=== PATIENT | female | born 1950 | race Two or more races ===

== ENCOUNTER 2018-09-26 09:39 | Day surgery (SDC) | payer BC, OTHER ==
[2018-09-25 08:29] VITALS: BMI 43.9
[2018-09-26] MEDS ORDERED: ONABOTULINUMTOXINA 200 UNIT/VIAL VIAL NR ONE (14:00)
[2018-09-26] MEDS ORDERED: ONDANSETRON 4 MG/2 ML VIAL IVPUSH PRN (14:44)
[2018-09-26] MEDS ORDERED: LACTATED RINGERS SOLUTION 1,000 ML IV SCH (14:45)
--- NOTE | 2018-09-26 15:24 | OP ---
Operative Note - Note: Operative Date: 09/26/18 Pre-Operative Diagnosis: oab, urgency, and cleo Operation: cysto, botex injection Post-Operative Diagnosis: Same as Pre-op Surgeon: Lars Ferrari Anesthesia: General Specimens Removed: urine for c&s Estimated Blood Loss (mls): 0 Drains & Tubes with Location: 0 Drains, Volume Out (mls): 0 Blood Volume Replaced (mls): 0 Fluid Volume Replaced (mls): 0 Operative Report Dictated: Yes
[2018-09-26] MEDS ORDERED: MIDAZOLAM HCL 2 MG/2 ML SINGLE DOSE VIAL ONE (15:29)
[2018-09-26] MEDS ORDERED: PROPOFOL 20 ML ONE (15:29)
[2018-09-26] MEDS ORDERED: ceFAZolin SODIUM 1 GM VIAL IVPB ONE (15:30)
[2018-09-26] MEDS ORDERED: ONABOTULINUMTOXINA 200 UNIT/VIAL VIAL IM ONE ×2 (15:50→15:54)
[2018-09-26 18:38] VITALS: BP 109/76; PULSE 103; TEMP 97.2
--- NOTE | 2018-09-27 09:56 | OP ---
DATE OF OPERATION: 09/26/2018 PREOPERATIVE DIAGNOSIS: Overactive bladder, urgency incontinence. POSTOPERATIVE DIAGNOSIS: Overactive bladder, urgency incontinence. PROCEDURES PERFORMED: Cystourethroscopy. Injection of Botox in bladder. ANESTHESIA: Neuroleptic. DESCRIPTION OF PROCEDURE: Under above-stated anesthesia, patient is prepped and draped in the usual sterile manner. She was placed in the dorsal lithotomy position. Cystoscopy revealed a grade 2 trabeculation of the bladder. Urine was collected for culture and sensitivity. The bladder revealed squamous metaplasia of the floor. Ureteral orifices were within normal limits with efflux of clear urine. Dome and lateral rivas were clear. Therefore, 200 units of Botox was mixed with mL of normal saline. Next, 20 mL was placed in 4-mL syringes. Four rows above the interureteric ridge were performed for injections, commencing from the right lateral wall and going across to the left lateral wall 5 injections. A second, third, and fourth row was performed. No active bleeding was noted. The bladder was emptied. The scope was removed. The patient tolerated the procedure well. She returned to the recovery room in good condition. Maxim [id number]
--- NOTE | 2018-09-29 09:19 | HP ---
DATE OF ADMISSION: DATE OF DICTATION: 09/26/2018 HISTORY OF PRESENT ILLNESS: The patient is a 68-year-old female with history of overactive bladder including frequency, urgency, nocturia, and incontinence. She also has history of anemia, chronic renal disease, gastroesophageal reflux disease, congestive heart failure, diabetes, dilated cardiomyopathy with an ejection fraction of 30. She failed all anticholinergic drug therapy including Kegel exercises. Urodynamic evaluation revealed an overactive bladder. Therefore patient is admitted for cystoscopy and Botox injection. PHYSICAL EXAMINATION: Presently chest is clear. Heart is regular. CT scan was within normal limits except for a simple left renal cyst. The patient is a G1, P1. Lungs are clear. Her heart is regular. Pelvic exam revealed a grade 2 cystocele, grade 1 rectocele, positive Rai test. Extremities show full range of motion with no cyanosis, clubbing, or edema. PLAN: The patient will undergo a cystoscopy with Botox injection. Maxim [id number]
== END 2018-09-26 18:25 | disposition home or self-care (01) ==
LOC: JASU-SURG 09:39
PROVIDERS: ATTEND Urology
PROC: 3E0K8GC Introduction of Other Therapeutic Substance into Genitourinary Tract, Via Natural or Artificial Opening Endoscopic (ICD-10-PCS; principal; 2018-09-26 13:00)
DX: N32.81 Overactive bladder (principal); N39.41 Urge incontinence; I10 Essential (primary) hypertension; E11.9 Type 2 diabetes mellitus without complications; E66.01 Morbid (severe) obesity due to excess calories
CPT/HCPCS: 82962; 87086; 94760; J0585

== ENCOUNTER 2020-06-30 04:29 | Day surgery (SDC) | payer BC, OTHER ==
[2020-06-29 11:46] VITALS: BMI 41.4
[2020-06-30 08:26] LABS: HEMATOCRIT 34.3 % (32.4-45.2); HEMOGLOBIN 11.1 GM/dL (10.7-15.3); MCH 33.8 pg (25.7-33.7); MCHC 32.3 g/dl (32.0-36.0); MEAN CELL VOLUME 104.5 fl (80-96); MEAN PLT VOLUME 10.1 fl (7.5-11.1); PLATELET COUNT 132 K/MM3 (134-434); RBC 3.29 M/mm3 (3.60-5.2); RDW 15.1 % (11.6-15.6); WHITE BLOOD COUNT 11.5 K/mm3 (4.0-10.0)
--- NOTE | 2020-06-30 08:45 | HP ---
Admitting History and Physical - Admission Chief Complaint: Pt here for creation of left avf for HD History Source: Patient Limitations to Obtaining History: No Limitations - Smoking History Smoking history: Never smoked - Alcohol/Substance Use Hx Alcohol Use: No Home Medications - Allergies Allergies/Adverse Reactions: Allergies Allergy/AdvReac Type Severity Reaction Status Date / Time aspirin AdvReac Severe STOMACH Verified 06/30/20 07:53 DISCOMFORT - Home Medications Home Medications: Ambulatory Orders Albuterol 2.5/Ipratropium 0.5 [Duoneb -] 1 neb NEB Q4H PRN 09/25/18 Albuterol Sulfate Inhaler - [Ventolin Hfa Inhaler -] 1 - 2 inh PO QID PRN 09/25/18 Atorvastatin Ca [Lipitor] 40 mg PO HS 09/25/18 Calcium Carbonate [Calcium] 200 mg PO DAILY 09/25/18 Enalapril Maleate 2.5 mg PO DAILY 09/25/18 Isosorbide Mononitrate [Isosorbide Mononitrate ER] 30 mg PO DAILY 09/25/18 Levothyroxine [Synthroid -] 50 mcg PO DAILY 09/25/18 Metoprolol Succinate 37.5 mg PO DAILY 09/25/18 Pantoprazole Sodium [Protonix -] 40 mg PO DAILY 09/25/18 Prednisone 10 mg PO DAILY 09/25/18 Tiotropium [place] [Spiriva] 1 inh PO DAILY 09/25/18 Torsemide 40 mg PO DAILY 09/25/18 Allopurinol [Zyloprim -] 200 mg PO DAILY 06/29/20 Budesonide/Formeterol Fumarate [SYMBICORT 160/4.5mcg -] 2 inh PO BID 06/29/20 Cholecalciferol (Vitamin D3) [Vitamin D3] 5,000 unit PO DAILY 06/29/20 Dexlansoprazole [Dexilant] 60 mg PO DAILY 06/29/20 Ferrous Sulfate 325 mg PO DAILY 06/29/20 Insulin Glargine,Hum.rec.anlog [Lantus Solostar] 45 unit SQ AM 06/29/20 Insulin Glargine,Hum.rec.anlog [Lantus Solostar] 55 unit SQ HS 06/29/20 Linaclotide [Linzess] 290 mcg PO DAILY 06/29/20 Tamsulosin HCl 0.4 mg PO DAILY 06/29/20 Review of Systems - Review of Systems Constitutional: reports: No Symptoms Eyes: reports: No Symptoms HENT: reports: No Symptoms Neck: reports: No Symptoms Cardiovascular: reports: No Symptoms Respiratory: reports: No Symptoms Gastrointestinal: reports: No Symptoms Genitourinary: reports: No Symptoms Breasts: reports: No Symptoms Reported Musculoskeletal: reports: No Symptoms Integumentary: reports: No Symptoms Neurological: reports: No Symptoms Endocrine: reports: No Symptoms Hematology/Lymphatic: reports: No Symptoms Psychiatric: reports: No Symptoms Physical Examination Vital Signs: Vital Signs Temperature 97.5 F L 06/30/20 07:50 Pulse Rate 98 H 06/30/20 07:50 Respiratory Rate 16 06/30/20 07:50 Blood Pressure 131/61 06/30/20 07:50 O2 Sat by Pulse Oximetry (%) 97 06/30/20 07:50 Constitutional: Yes: Well Nourished, No Distress, Calm Eyes: Yes: WNL, Conjunctiva Clear, EOM Intact HENT: Yes: WNL, Atraumatic, Normocephalic Neck: Yes: WNL, Supple, Trachea Midline Cardiovascular: Yes: WNL, Regular Rate and Rhythm Respiratory: Yes: WNL, Regular, CTA Bilaterally Gastrointestinal: Yes: WNL, Normal Bowel Sounds Musculoskeletal: Yes: WNL Extremities: Yes: WNL Edema: No Integumentary: Yes: WNL Neurological: Yes: WNL, Alert, Oriented ...Motor Strength: WNL Psychiatric: Yes: WNL Problem List - Problems (1) ESRD (end stage renal disease) Assessment/Plan: For creation of left avf Chico Blair dO Problems reviewed: Yes Code(s): N18.6 - END STAGE RENAL DISEASE
[2020-06-30 08:51] LABS: INR 0.85 (0.83-1.09)
[2020-06-30] MEDS ORDERED: oxyCODONE HCL 5 MG TABLET PO PRN ×2 (08:51)
[2020-06-30] MEDS ORDERED: ONDANSETRON 4 MG/2 ML VIAL IVPUSH PRN (08:51)
[2020-06-30] MEDS ORDERED: MIDAZOLAM HCL 2 MG/2 ML SINGLE DOSE VIAL ONE (08:53)
[2020-06-30] MEDS ORDERED: ROPIVACAINE HCL 0.5% 30ML VIAL ONE (08:54)
[2020-06-30 08:58] LABS: ALBUMIN 3.5 g/dl (3.4-5.0); BILIRUBIN,TOTAL 0.6 mg/dL (0.2-1); BLOOD UREA NITROGEN 75.8 mg/dL (7-18); CALCIUM 9.1 mg/dL (8.5-10.1); CREATININE 2.9 mg/dL (0.55-1.3); POTASSIUM 4.1 mmol/L (3.5-5.1)
[2020-06-30] MEDS ORDERED: SODIUM CHLORIDE 1,000 ML IV SCH (09:00)
[2020-06-30] MEDS ORDERED: HEPARIN NA (PORCINE) 5,000 UNITS/ML 1ML VIAL ONE (09:02)
[2020-06-30] MEDS ORDERED: LIDOCAINE HCL 1%, 10 MG/ML (20ML VIAL) ONE (09:02)
[2020-06-30] MEDS ORDERED: POVIDONE-IODINE OINTMENT 10% - 28.4 GM TUBE ONE (09:03)
[2020-06-30] MEDS ORDERED: ceFAZolin 2 GRAM PREMIX BAG IVPB ONE ×2 (09:15→09:27)
[2020-06-30] MEDS ORDERED: LIDOCAINE HCL 1%, 10 MG/ML (20ML VIAL) NR ONE ×2 (09:35)
[2020-06-30] MEDS ORDERED: SODIUM CHLORIDE 0.9% P/F 10 ML VIAL IJ ONE (10:36)
[2020-06-30] MEDS ORDERED: METOPROLOL TARTRATE 5 MG/5 ML VIAL ONE (10:42)
--- NOTE | 2020-06-30 10:42 | OP ---
Operative Note - Note: Operative Date: 06/30/20 Pre-Operative Diagnosis: ESRD Operation: Creation of left cephalic vein fistula Post-Operative Diagnosis: Same as Pre-op Surgeon: Chico Blair Anesthesia: MAC Estimated Blood Loss (mls): 50 Operative Report Dictated: Yes
[2020-06-30] MEDS ORDERED: ALBUTEROL SO4 HFA INHALER IH ONE (11:12)
[2020-06-30 11:36] VITALS: TEMP 97.7
[2020-06-30 13:42] VITALS: BP 109/50; PULSE 115
--- NOTE | 2020-07-12 09:59 | OP ---
DATE OF OPERATION: 06/30/2020 PREOPERATIVE DIAGNOSIS: End-stage renal disease. POSTOPERATIVE DIAGNOSIS: End-stage renal disease. PROCEDURE: Creation of left cephalic vein fistula. SURGEON: Chico Anderson DO ANESTHESIA: Fractional. BLOOD LOSS: 50 mL Patient is a 70-year-old female that needs a permanent dialysis access for hemodialysis. Patient had preoperative A mapping showing that the cephalic vein in the left arm is of good caliber. Patient then went through medical and cardiology clearance. Patient was found to be COVID-19 negative. Patient then came through Ambulatory Surgery. Patient was consented for the procedure understanding all the risks, benefits and alternatives, was then taken to the operating room. Once in the operating room, laid on the operating table in the supine manner. The area of the left arm was prepped and draped in a sterile surgical manner. Using ultrasound guidance we were able to map out our cephalic vein and our brachial artery, and those were marked on the arm below the antecubital fossa. We then nigel a diagonal incision between them with a skin marker. We then went ahead and injected 10 mL of lidocaine 1% in the area. We then used a 15-blade and made a 4 cm incision. Electrocautery was used to control hemostasis and we were able to get through all the subcutaneous tissue. We then dissected out our cephalic vein, ligating any branches with 4-0 silk. We then went medially, went through the fascia and dissected out our brachial artery. Brachial artery was dissected anteriorly and posteriorly and vessel loops were placed proximally and distally. Heparin 5000 units IV were administered to the patient. We then ligated the vein distally. We then placed a 4-[place] feeding tube and the feeding tube went all the way up into the upper arm. There was good drawback of blood and the vein dilated appropriately. We then transposed the vein over to the artery. We gained distal and proximal control on our artery using vessel loops. We then went ahead and used a 15-blade and made an arteriotomy, extending it to 7 mm using Cuevas scissors. Using the Cuevas scissors we made a 7-mm venotomy on the vein as well. Prolene 6-0 stay sutures were placed on the artery. We then used 6-0 Prolene double-arm and went outside in on the vein, inside out on the artery and ran the stitch around to perform the anastomosis between the artery and the vein. Once completed, we opened the distal artery first in the proximal artery and there was a good thrill in her AV fistula. The wound was then well irrigated. Surgicel was placed. Vicryl 3-0 was used and the subcutaneous tissue was approximated in an interrupted manner. Skin was closed with skin jasiel. Patient had a good bruit and thrill in the left upper arm. A 4 x 4 and Tegaderms were placed. Patient tolerated the procedure with no complication. Patient was transferred to PACU in stable condition. CHICO ANDERSON DO [id number]
== END 2020-06-30 13:05 | disposition home or self-care (01) ==
LOC: JASU-SURG 04:29
PROVIDERS: ATTEND Surgery Vascular Surgery
PROC: 03180ZD Bypass Left Brachial Artery to Upper Arm Vein, Open Approach (ICD-10-PCS; principal; 2020-06-30 09:00)
DX: I12.0 Hypertensive chronic kidney disease with stage 5 chronic kidney disease or end stage renal disease (principal); E11.22 Type 2 diabetes mellitus with diabetic chronic kidney disease; N18.6 End stage renal disease; Z99.2 Dependence on renal dialysis; E66.01 Morbid (severe) obesity due to excess calories; I50.9 Heart failure, unspecified; J44.9 Chronic obstructive pulmonary disease, unspecified
CPT/HCPCS: 36415; 80053; 82962; 85027; 85610; J1644

== ENCOUNTER 2020-12-27 17:31 | Inpatient (IN) | payer OTHER ==
[2020-12-27 18:51] LABS: BASO % 1.5 % (0-2.0); EOS % 3.4 % (0-4.5); HEMATOCRIT 26.4 % (32.4-45.2); HEMOGLOBIN 7.9 GM/dL (10.7-15.3); LYMPH % 21.3 % (8-40); MCH 32.8 pg (25.7-33.7); MEAN CELL VOLUME 109.4 fl (80-96); MEAN PLT VOLUME 11.6 fl (7.5-11.1); NEUT % 66.8 % (42.8-82.8); PLATELET COUNT 148 K/MM3 (134-434); RBC 2.41 M/mm3 (3.60-5.2); RDW 20.7 % (11.6-15.6)
[2020-12-27 19:14] LABS: BLOOD UREA NITROGEN 82.3 mg/dL (7-18)
[2020-12-27 19:15] LABS: ALBUMIN 2.6 g/dl (3.4-5.0)
[2020-12-27] MEDS ORDERED: ACETAMINOPHEN 1000 MG/100 ML BAG IVPB ONE (19:16)
[2020-12-27 19:17] LABS: CREATININE 3.5 mg/dL (0.55-1.3)
[2020-12-27 19:18] LABS: BILIRUBIN,TOTAL 0.5 mg/dL (0.2-1); TOT PROT 6.4 g/dl (6.4-8.2)
[2020-12-27] MEDS ORDERED: ACETAMINOPHEN INJECTION 100 ML IVPB ONE (19:24)
[2020-12-27 20:23] LABS: ANISOCYTOSIS 2+; MACROCYTOSIS 2+
[2020-12-27 22:06] LABS: INR 1.14 (0.83-1.09); PROTHROMBIN TIME (PATIENT) 13.7 SEC (9.7-13.0)
[2020-12-27 22:08] LABS: ACTIVATED PTT 34.9 SECONDS (25.2-36.5)
[2020-12-27] MEDS ORDERED: SODIUM ZIRCONIUM CYCLOSILICATE (LOKELMA) 5 GM PACKET PO ONE (22:24)
[2020-12-27 22:25] LABS: N-TERMINAL BNP 33226.8 pg/ml (5-125)
[2020-12-28] MEDS ORDERED: SODIUM ZIRCONIUM CYCLOSILICATE (LOKELMA) 5 GM PACKET ONE (00:37)
[2020-12-28 08:36] LABS: BLOOD UREA NITROGEN 80.9 mg/dL (7-18); CALCIUM 8.3 mg/dL (8.5-10.1)
[2020-12-28 08:39] LABS: PHOSPHOROUS 4.7 mg/dL (2.5-4.9)
[2020-12-28 08:40] LABS: CREATININE 3.6 mg/dL (0.55-1.3)
[2020-12-28 09:31] LABS: HEMATOCRIT 27.5 % (32.4-45.2); HEMOGLOBIN 8.1 GM/dL (10.7-15.3); MCH 32.4 pg (25.7-33.7); MCHC 29.6 g/dl (32.0-36.0); MEAN CELL VOLUME 109.3 fl (80-96); PLATELET COUNT 98 K/MM3 (134-434); RBC 2.52 M/mm3 (3.60-5.2); RDW 20.5 % (11.6-15.6)
[2020-12-28] MEDS: INSULIN SLIDING SCALE (NOVOLOG) 1 VIAL SQ SCH ×4 (09:36→21:55)
[2020-12-28] MEDS ORDERED: PANTOPRAZOLE 40 MG TABLET ONE (09:44)
[2020-12-28] MEDS ORDERED: ENALAPRIL MALEATE 5 MG TABLET ONE (09:45)
[2020-12-28] MEDS ORDERED: FERROUS SO4 325 MG TABLET (FP) ONE (09:45)
[2020-12-28] MEDS: LEVOTHYROXINE NA 50 MCG TABLET (FP) PO SCH (09:58)
[2020-12-28] MEDS: FERROUS SO4 325 MG TABLET (FP) PO SCH (09:58)
[2020-12-28] MEDS ORDERED: ENALAPRIL MALEATE 5 MG TABLET PO SCH (10:00)
[2020-12-28] MEDS ORDERED: ISOSORBIDE MONONITRATE 30 MG TAB.SR.24H (FP) PO SCH (10:00)
[2020-12-28] MEDS: PANTOPRAZOLE 40 MG TABLET PO SCH (10:01)
[2020-12-28] MEDS ORDERED: SODIUM ZIRCONIUM CYCLOSILICATE (LOKELMA) 5 GM PACKET PO ONE ×2 (10:48→22:24)
[2020-12-28] MEDS: FUROSEMIDE 40 MG/4 ML INJECTABLE VIAL IVPUSH SCH ×2 (11:31→15:50)
[2020-12-28] MEDS: metoPROLOL SUCCINATE 25 MG TAB.SR.24H (FP) PO SCH (12:20)
[2020-12-28] MEDS ORDERED: FUROSEMIDE 40 MG/4 ML INJECTABLE VIAL ONE (15:08)
[2020-12-28] MEDS ORDERED: PIPERACILLIN/TAZOB 2.25 GM 2.25 GM in DEXTROSE 5%-WATER - 50 ML IVPB ONE (18:33)
[2020-12-28] MEDS ORDERED: VANCOMYCIN 500 MG in DEXTROSE 5%-WATER - 100 ML IVPB ONE (18:33)
[2020-12-28 19:27] LABS: ARTERIAL BLD GAS O2 SATURATION 98.2 mmHg (95-98); ARTERIAL BLOOD GAS BASE EXCESS -5.2 mmol/L (-2-2); ARTERIAL BLOOD GAS PO2 130.7 mmHg (80-100); ARTERIAL BLOOD GAS pH 7.273 (7.350-7.450)
[2020-12-28 19:41] LABS: CALCIUM 7.8 mg/dL (8.5-10.1)
[2020-12-28 19:42] LABS: ALBUMIN 2.6 g/dl (3.4-5.0); BLOOD UREA NITROGEN 80.4 mg/dL (7-18); MAGNESIUM 2.6 mg/dL (1.8-2.4)
[2020-12-28 19:45] LABS: CREATININE 3.7 mg/dL (0.55-1.3); PHOSPHOROUS 4.7 mg/dL (2.5-4.9)
[2020-12-28 19:46] LABS: BILIRUBIN,TOTAL 0.5 mg/dL (0.2-1); TOT PROT 5.9 g/dl (6.4-8.2)
[2020-12-28] MEDS ORDERED: VASOPRESSIN 20 UNITS/ML VIAL IV ONE (20:19)
[2020-12-28] MEDS ORDERED: PIPERACILLIN/TAZOBACTAM 2.25 GM VIAL IVPB ONE (21:21)
[2020-12-28] MEDS ORDERED: DEXTROSE 5%-WATER - 50 ML IVPB ONE (21:21)
[2020-12-28] MEDS: ATORVASTATIN CA 40 MG TABLET (FP) PO SCH (21:55)
[2020-12-28] MEDS: VASOPRESSIN 40 UNITS in SODIUM CHLORIDE 98 ML IVPB SCH (22:00)
[2020-12-29] MEDS: INSULIN SLIDING SCALE (NOVOLOG) 1 VIAL SQ SCH ×3 (06:29→22:01)
[2020-12-29] MEDS: LEVOTHYROXINE NA 50 MCG TABLET (FP) PO SCH ×2 (06:30→10:57)
[2020-12-29 07:29] LABS: ALBUMIN 2.6 g/dl (3.4-5.0); CALCIUM 7.8 mg/dL (8.5-10.1)
[2020-12-29 07:30] LABS: BLOOD UREA NITROGEN 79.5 mg/dL (7-18)
[2020-12-29 07:33] LABS: CREATININE 3.4 mg/dL (0.55-1.3)
[2020-12-29 07:34] LABS: BILIRUBIN,TOTAL 0.5 mg/dL (0.2-1); TOT PROT 5.6 g/dl (6.4-8.2)
[2020-12-29] MEDS ORDERED: PT OWN MED DRAWER 7, Y5N ONE (10:45)
[2020-12-29] MEDS: PANTOPRAZOLE 40 MG TABLET PO SCH (10:47)
[2020-12-29] MEDS: FERROUS SO4 325 MG TABLET (FP) PO SCH (10:47)
[2020-12-29] MEDS: metoPROLOL SUCCINATE 25 MG TAB.SR.24H (FP) PO SCH (10:48)
[2020-12-29 11:10] LABS: BASO % 1.7 % (0-2.0); EOS % 3.1 % (0-4.5); HEMATOCRIT 26.4 % (32.4-45.2); HEMOGLOBIN 7.8 GM/dL (10.7-15.3); LYMPH % 13.1 % (8-40); MCH 32.6 pg (25.7-33.7); MCHC 29.4 g/dl (32.0-36.0); MEAN CELL VOLUME 110.8 fl (80-96); MEAN PLT VOLUME 10.4 fl (7.5-11.1); MONO % 4.5 % (3.8-10.2); NEUT % 77.6 % (42.8-82.8); PLATELET COUNT 102 K/MM3 (134-434); RBC 2.39 M/mm3 (3.60-5.2); RDW 20.8 % (11.6-15.6); WHITE BLOOD COUNT 7.4 K/mm3 (4.0-10.0)
[2020-12-29] MEDS: ENOXAPARIN NA (PORCINE) 40 MG/0.4 ML DISP.SYRIN SQ SCH (14:00)
[2020-12-29] MEDS ORDERED: VANCOMYCIN 1 GRAM (PRE-DOCKED) 1,000 MG/250 ML BAG IVPB ONE (14:09)
[2020-12-29 15:32] LABS: URINE APPEARANCE CLEAR; URINE BILIRUBIN NEGATIVE (NEGATIVE); URINE COLOR YELLOW; URINE GLUCOSE (UA) NEGATIVE (NEGATIVE); URINE KETONE NEGATIVE (NEGATIVE); URINE LEUK ESTERASE NEGATIVE (NEGATIVE); URINE NITRITE NEGATIVE (NEGATIVE); URINE PROTEIN NEGATIVE (NEGATIVE); URINE UROBILINOGEN 0.2 mg/dL (0.2-1.0)
[2020-12-29] MEDS: PIPERACILLIN/TAZOB 2.25 GM 2.25 GM in DEXTROSE 5%-WATER - 50 ML IVPB SCH (17:00)
[2020-12-29] MEDS ORDERED: PIPERACILLIN/TAZOBACTAM 2.25 GM VIAL IVPB ONE (17:26)
[2020-12-29] MEDS ORDERED: DEXTROSE 5%-WATER - 50 ML IVPB ONE (17:26)
[2020-12-29] MEDS ORDERED: PIPERACILLIN/TAZOB 2.25 GM 2.25 GM in DEXTROSE 5%-WATER - 50 ML IVPB SCH (18:00)
[2020-12-29] MEDS: VASOPRESSIN 40 UNITS in SODIUM CHLORIDE 98 ML IVPB SCH (19:40)
[2020-12-29] MEDS: ATORVASTATIN CA 40 MG TABLET (FP) PO SCH (22:01)
[2020-12-29] MEDS: NOREPINEPHRINE NS PREMIX 16,000 MCG/500 ML BAG IVPB SCH ×2 (23:00)
[2020-12-30] MEDS: LEVOTHYROXINE NA 50 MCG TABLET (FP) PO SCH (06:22)
[2020-12-30] MEDS: FUROSEMIDE 40 MG/4 ML INJECTABLE VIAL IVPUSH SCH ×2 (06:22→14:17)
[2020-12-30] MEDS: INSULIN SLIDING SCALE (NOVOLOG) 1 VIAL SQ SCH ×4 (06:22→21:57)
[2020-12-30 07:42] LABS: BASO % 0.6 % (0-2.0); EOS % 6.3 % (0-4.5); HEMOGLOBIN 7.6 GM/dL (10.7-15.3); LYMPH % 20.6 % (8-40); MCH 32.9 pg (25.7-33.7); MCHC 30.4 g/dl (32.0-36.0); MEAN PLT VOLUME 10.7 fl (7.5-11.1); NEUT % 65.5 % (42.8-82.8); PLATELET COUNT 102 K/MM3 (134-434); RBC 2.32 M/mm3 (3.60-5.2); RDW 20.4 % (11.6-15.6); WHITE BLOOD COUNT 6.6 K/mm3 (4.0-10.0)
[2020-12-30 08:14] LABS: CALCIUM 7.7 mg/dL (8.5-10.1)
[2020-12-30 08:15] LABS: ALBUMIN 2.5 g/dl (3.4-5.0)
[2020-12-30 08:18] LABS: CREATININE 3.2 mg/dL (0.55-1.3)
[2020-12-30 08:19] LABS: BILIRUBIN,TOTAL 0.4 mg/dL (0.2-1)
[2020-12-30 08:20] LABS: TOT PROT 5.5 g/dl (6.4-8.2)
[2020-12-30] MEDS ORDERED: PIPERACILLIN/TAZOBACTAM 2.25 GM VIAL IVPB ONE ×2 (09:33→18:05)
[2020-12-30] MEDS ORDERED: DEXTROSE 5%-WATER - 50 ML IVPB ONE ×2 (09:33→18:05)
[2020-12-30] MEDS: FERROUS SO4 325 MG TABLET (FP) PO SCH (09:35)
[2020-12-30] MEDS: PANTOPRAZOLE 40 MG TABLET PO SCH (09:36)
[2020-12-30] MEDS: ENOXAPARIN NA (PORCINE) 40 MG/0.4 ML DISP.SYRIN SQ SCH ×2 (09:36→21:49)
[2020-12-30] MEDS: metoPROLOL SUCCINATE 25 MG TAB.SR.24H (FP) PO SCH (09:36)
[2020-12-30] MEDS: PIPERACILLIN/TAZOB 2.25 GM 2.25 GM in DEXTROSE 5%-WATER - 50 ML IVPB SCH ×3 (11:09→21:12)
[2020-12-30] MEDS: SODIUM CHLORIDE 1,000 ML IV SCH (12:56)
[2020-12-30] MEDS: NOREPINEPHRINE NS PREMIX 16,000 MCG/500 ML BAG IVPB SCH (19:00)
[2020-12-30] MEDS: VASOPRESSIN 40 UNITS in SODIUM CHLORIDE 98 ML IVPB SCH (21:12)
[2020-12-30] MEDS ORDERED: ACETAMINOPHEN 1000 MG/100 ML BAG IVPB ONE (21:29)
[2020-12-30] MEDS: ATORVASTATIN CA 40 MG TABLET (FP) PO SCH (21:37)
[2020-12-31] MEDS ORDERED: DEXTROSE 5%-WATER - 50 ML IVPB ONE ×3 (02:15→17:29)
[2020-12-31] MEDS ORDERED: PIPERACILLIN/TAZOBACTAM 2.25 GM VIAL IVPB ONE ×3 (02:15→17:28)
[2020-12-31] MEDS: SODIUM CHLORIDE 1,000 ML IV SCH ×2 (02:43→11:59)
[2020-12-31] MEDS: PIPERACILLIN/TAZOB 2.25 GM 2.25 GM in DEXTROSE 5%-WATER - 50 ML IVPB SCH ×3 (02:44→18:17)
[2020-12-31] MEDS: FUROSEMIDE 40 MG/4 ML INJECTABLE VIAL IVPUSH SCH ×2 (05:11→14:00)
[2020-12-31] MEDS: LEVOTHYROXINE NA 50 MCG TABLET (FP) PO SCH (06:18)
[2020-12-31] MEDS: INSULIN SLIDING SCALE (NOVOLOG) 1 VIAL SQ SCH ×3 (06:36→18:16)
[2020-12-31 07:39] LABS: BASO % 0.5 % (0-2.0); EOS % 3.7 % (0-4.5); HEMATOCRIT 24.6 % (32.4-45.2); HEMOGLOBIN 7.3 GM/dL (10.7-15.3); LYMPH % 10.8 % (8-40); MCH 32.7 pg (25.7-33.7); MCHC 29.8 g/dl (32.0-36.0); MEAN PLT VOLUME 11.1 fl (7.5-11.1); MONO % 6.5 % (3.8-10.2); NEUT % 78.5 % (42.8-82.8); PLATELET COUNT 102 K/MM3 (134-434); RBC 2.24 M/mm3 (3.60-5.2); RDW 20.3 % (11.6-15.6); WHITE BLOOD COUNT 7.7 K/mm3 (4.0-10.0)
[2020-12-31 08:00] LABS: CALCIUM 7.7 mg/dL (8.5-10.1)
[2020-12-31 08:01] LABS: ALBUMIN 2.3 g/dl (3.4-5.0); BLOOD UREA NITROGEN 75.7 mg/dL (7-18)
[2020-12-31 08:04] LABS: CREATININE 3.2 mg/dL (0.55-1.3)
[2020-12-31 08:05] LABS: BILIRUBIN,TOTAL 0.5 mg/dL (0.2-1); TOT PROT 5.4 g/dl (6.4-8.2)
[2020-12-31 09:25] LABS: ANISOCYTOSIS 2+; MACROCYTOSIS 1+; PLATELET ESTIMATE DECREASED; TARGET CELLS 1+; TEAR DROP CELLS 1+
[2020-12-31] MEDS: ENOXAPARIN NA (PORCINE) 40 MG/0.4 ML DISP.SYRIN SQ SCH (09:31)
[2020-12-31] MEDS: PANTOPRAZOLE 40 MG TABLET PO SCH (11:58)
[2020-12-31] MEDS: FERROUS SO4 325 MG TABLET (FP) PO SCH (11:58)
[2020-12-31] MEDS ORDERED: EPOETIN ALFA-EPBX 10,000 UNIT/ML VIAL SQ ONE (19:17)
[2020-12-31] MEDS: ATORVASTATIN CA 40 MG TABLET (FP) PO SCH (22:49)
[2020-12-31] MEDS: NOREPINEPHRINE NS PREMIX 16,000 MCG/500 ML BAG IVPB SCH (22:50)
[2020-12-31] MEDS ORDERED: morphine CARPU-JECT 4 MG/1 ML DISP.SYRIN IVPUSH ONE (23:58)
[2020-12-31] MEDS ORDERED: morphine SULFATE 4 MG/ML VIAL IVPUSH ONE (23:58)
[2021-01-01] MEDS ORDERED: PREGABALIN 25 MG CAPSULE PO ONE (00:01)
[2021-01-01] MEDS ORDERED: morphine SULFATE 4 MG/ML VIAL ONE (00:04)
[2021-01-01] MEDS ORDERED: RAPID SEQUENCE INTUBATION KIT NR ONE (00:29)
[2021-01-01] MEDS: PIPERACILLIN/TAZOB 2.25 GM 2.25 GM in DEXTROSE 5%-WATER - 50 ML IVPB SCH ×3 (02:30→18:53)
[2021-01-01] MEDS ORDERED: PIPERACILLIN/TAZOBACTAM 2.25 GM VIAL IVPB ONE ×3 (02:36→16:20)
[2021-01-01] MEDS ORDERED: DEXTROSE 5%-WATER - 50 ML IVPB ONE ×3 (02:36→16:20)
[2021-01-01] MEDS ORDERED: ROCURONIUM BROMIDE 100 MG/10 ML VIAL ONE (02:58)
[2021-01-01] MEDS: FUROSEMIDE 40 MG/4 ML INJECTABLE VIAL IVPUSH SCH (06:58)
[2021-01-01] MEDS: LEVOTHYROXINE NA 50 MCG TABLET (FP) PO SCH (06:59)
[2021-01-01] MEDS: INSULIN SLIDING SCALE (NOVOLOG) 1 VIAL SQ SCH ×5 (06:59→22:21)
[2021-01-01 07:39] LABS: ALBUMIN 2.5 g/dl (3.4-5.0)
[2021-01-01 07:42] LABS: CREATININE 3.3 mg/dL (0.55-1.3)
[2021-01-01 07:44] LABS: BILIRUBIN,TOTAL 0.8 mg/dL (0.2-1); TOT PROT 5.9 g/dl (6.4-8.2)
[2021-01-01 08:17] LABS: BLOOD UREA NITROGEN 77.4 mg/dL (7-18)
[2021-01-01 08:26] LABS: BASO % 0.4 % (0-2.0); EOS % 0.9 % (0-4.5); HEMATOCRIT 25.3 % (32.4-45.2); HEMOGLOBIN 7.4 GM/dL (10.7-15.3); LYMPH % 10.2 % (8-40); MCH 32.4 pg (25.7-33.7); MCHC 29.3 g/dl (32.0-36.0); MEAN CELL VOLUME 110.4 fl (80-96); MEAN PLT VOLUME 10.3 fl (7.5-11.1); NEUT % 82.5 % (42.8-82.8); PLATELET COUNT 109 K/MM3 (134-434); RBC 2.29 M/mm3 (3.60-5.2); RDW 20.3 % (11.6-15.6); WHITE BLOOD COUNT 7.6 K/mm3 (4.0-10.0)
[2021-01-01] MEDS ORDERED: PT OWN MED DRAWER 7, Y5N ONE (09:24)
[2021-01-01] MEDS: PANTOPRAZOLE 40 MG TABLET PO SCH (09:26)
[2021-01-01] MEDS: ENOXAPARIN NA (PORCINE) 40 MG/0.4 ML DISP.SYRIN SQ SCH (09:26)
[2021-01-01] MEDS: FERROUS SO4 325 MG TABLET (FP) PO SCH (09:26)
[2021-01-01] MEDS: ACETAMINOPHEN 1000 MG/100 ML BAG IVPB PRN (10:03)
[2021-01-01] MEDS: MIDODRINE HCL 5 MG TABLET PO SCH ×2 (14:00→18:53)
[2021-01-01] MEDS: ATORVASTATIN CA 40 MG TABLET (FP) PO SCH (22:34)
[2021-01-02] MEDS ORDERED: DEXTROSE 5%-WATER - 50 ML IVPB ONE ×3 (01:17→18:22)
[2021-01-02] MEDS ORDERED: PIPERACILLIN/TAZOBACTAM 2.25 GM VIAL IVPB ONE ×3 (01:17→18:22)
[2021-01-02] MEDS: PIPERACILLIN/TAZOB 2.25 GM 2.25 GM in DEXTROSE 5%-WATER - 50 ML IVPB SCH ×3 (01:28→18:23)
[2021-01-02] MEDS: ACETAMINOPHEN 1000 MG/100 ML BAG IVPB PRN ×2 (03:53→15:42)
[2021-01-02] MEDS ORDERED: morphine SULFATE 4 MG/ML VIAL IVPUSH ONE (04:13)
[2021-01-02] MEDS ORDERED: morphine SULFATE 4 MG/ML VIAL ONE (04:14)
[2021-01-02] MEDS: NOREPINEPHRINE NS PREMIX 16,000 MCG/500 ML BAG IVPB SCH (04:52)
[2021-01-02] MEDS: LEVOTHYROXINE NA 50 MCG TABLET (FP) PO SCH (06:08)
[2021-01-02] MEDS: INSULIN SLIDING SCALE (NOVOLOG) 1 VIAL SQ SCH ×4 (06:08→22:28)
[2021-01-02 06:44] LABS: BASO % 0.9 % (0-2.0); EOS % 3.7 % (0-4.5); HEMATOCRIT 26.3 % (32.4-45.2); HEMOGLOBIN 7.8 GM/dL (10.7-15.3); LYMPH % 9.6 % (8-40); MCH 32.7 pg (25.7-33.7); MCHC 29.9 g/dl (32.0-36.0); MEAN CELL VOLUME 109.2 fl (80-96); MEAN PLT VOLUME 9.9 fl (7.5-11.1); MONO % 4.9 % (3.8-10.2); NEUT % 80.9 % (42.8-82.8); PLATELET COUNT 105 K/MM3 (134-434); RDW 20.2 % (11.6-15.6); WHITE BLOOD COUNT 6.4 K/mm3 (4.0-10.0)
[2021-01-02 07:08] LABS: CALCIUM 8.2 mg/dL (8.5-10.1)
[2021-01-02 07:09] LABS: ALBUMIN 2.4 g/dl (3.4-5.0)
[2021-01-02 07:12] LABS: CREATININE 3.1 mg/dL (0.55-1.3); PHOSPHOROUS 4.9 mg/dL (2.5-4.9)
[2021-01-02 07:13] LABS: BILIRUBIN,TOTAL 1.1 mg/dL (0.2-1); TOT PROT 5.7 g/dl (6.4-8.2)
[2021-01-02] MEDS: PANTOPRAZOLE 40 MG TABLET PO SCH (10:23)
[2021-01-02] MEDS: MIDODRINE HCL 5 MG TABLET PO SCH ×3 (10:23→18:07)
[2021-01-02] MEDS: ENOXAPARIN NA (PORCINE) 40 MG/0.4 ML DISP.SYRIN SQ SCH (10:23)
[2021-01-02] MEDS: FERROUS SO4 325 MG TABLET (FP) PO SCH (10:23)
[2021-01-02] MEDS: ATORVASTATIN CA 40 MG TABLET (FP) PO SCH (22:28)
[2021-01-03] MEDS: NOREPINEPHRINE NS PREMIX 16,000 MCG/500 ML BAG IVPB SCH (01:00)
[2021-01-03] MEDS ORDERED: morphine SULFATE 4 MG/ML VIAL IVPUSH ONE (01:52)
[2021-01-03] MEDS: ACETAMINOPHEN 1000 MG/100 ML BAG IVPB PRN ×2 (01:55→14:40)
[2021-01-03] MEDS: PIPERACILLIN/TAZOB 2.25 GM 2.25 GM in DEXTROSE 5%-WATER - 50 ML IVPB SCH ×3 (02:45→17:50)
[2021-01-03] MEDS ORDERED: PIPERACILLIN/TAZOBACTAM 2.25 GM VIAL IVPB ONE ×3 (04:30→17:30)
[2021-01-03] MEDS ORDERED: DEXTROSE 5%-WATER - 50 ML IVPB ONE ×3 (04:30→17:30)
[2021-01-03] MEDS: LEVOTHYROXINE NA 50 MCG TABLET (FP) PO SCH (06:15)
[2021-01-03] MEDS: INSULIN SLIDING SCALE (NOVOLOG) 1 VIAL SQ SCH ×4 (06:15→22:24)
[2021-01-03 07:02] LABS: BASO % 0.6 % (0-2.0); EOS % 5.5 % (0-4.5); HEMATOCRIT 25.2 % (32.4-45.2); HEMOGLOBIN 7.5 GM/dL (10.7-15.3); LYMPH % 13.2 % (8-40); MCH 32.5 pg (25.7-33.7); MCHC 29.7 g/dl (32.0-36.0); MEAN CELL VOLUME 109.4 fl (80-96); MEAN PLT VOLUME 9.7 fl (7.5-11.1); NEUT % 72.7 % (42.8-82.8); PLATELET COUNT 99 K/MM3 (134-434); RBC 2.31 M/mm3 (3.60-5.2); RDW 20.2 % (11.6-15.6); WHITE BLOOD COUNT 5.4 K/mm3 (4.0-10.0)
[2021-01-03 08:36] LABS: ALBUMIN 2.2 g/dl (3.4-5.0); CALCIUM 8.4 mg/dL (8.5-10.1)
[2021-01-03 08:37] LABS: BLOOD UREA NITROGEN 72.6 mg/dL (7-18); MAGNESIUM 2.1 mg/dL (1.8-2.4)
[2021-01-03 08:40] LABS: PHOSPHOROUS 4.9 mg/dL (2.5-4.9)
[2021-01-03 08:41] LABS: BILIRUBIN,TOTAL 0.6 mg/dL (0.2-1); TOT PROT 5.6 g/dl (6.4-8.2)
[2021-01-03] MEDS: FERROUS SO4 325 MG TABLET (FP) PO SCH (09:57)
[2021-01-03] MEDS: ENOXAPARIN NA (PORCINE) 40 MG/0.4 ML DISP.SYRIN SQ SCH (09:57)
[2021-01-03] MEDS: PANTOPRAZOLE 40 MG TABLET PO SCH (09:58)
[2021-01-03] MEDS: MIDODRINE HCL 5 MG TABLET PO SCH ×3 (09:58→17:49)
[2021-01-03 13:06] VITALS: BMI 37.1
[2021-01-03] MEDS ORDERED: PT OWN MED DRAWER 7, Y5N ONE (17:30)
[2021-01-03] MEDS ORDERED: ATORVASTATIN CA 40 MG TABLET (FP) PO SCH (22:00)
[2021-01-04] MEDS ORDERED: PIPERACILLIN/TAZOBACTAM 2.25 GM VIAL IVPB ONE ×2 (02:04→09:05)
[2021-01-04] MEDS ORDERED: DEXTROSE 5%-WATER - 50 ML IVPB ONE ×2 (02:05→09:06)
[2021-01-04] MEDS: PIPERACILLIN/TAZOB 2.25 GM 2.25 GM in DEXTROSE 5%-WATER - 50 ML IVPB SCH ×3 (02:06→18:22)
[2021-01-04] MEDS: ACETAMINOPHEN 325 MG TABLET (FP) PO PRN ×2 (05:06→14:39)
[2021-01-04] MEDS: INSULIN SLIDING SCALE (NOVOLOG) 1 VIAL SQ SCH ×3 (06:42→18:21)
[2021-01-04] MEDS ORDERED: LEVOTHYROXINE NA 50 MCG TABLET (FP) PO SCH (07:00)
[2021-01-04] MEDS ORDERED: PT OWN MED DRAWER 7, Y5N ONE ×2 (09:05→14:31)
[2021-01-04] MEDS: MIDODRINE HCL 5 MG TABLET PO SCH ×3 (09:15→18:22)
[2021-01-04 09:28] LABS: BASO % 0.6 % (0-2.0); EOS % 3.1 % (0-4.5); HEMATOCRIT 26.5 % (32.4-45.2); HEMOGLOBIN 7.9 GM/dL (10.7-15.3); LYMPH % 8.5 % (8-40); MCH 32.8 pg (25.7-33.7); MCHC 29.9 g/dl (32.0-36.0); MEAN CELL VOLUME 109.7 fl (80-96); MEAN PLT VOLUME 10.1 fl (7.5-11.1); MONO % 7.1 % (3.8-10.2); NEUT % 80.7 % (42.8-82.8); PLATELET COUNT 112 K/MM3 (134-434); RBC 2.42 M/mm3 (3.60-5.2); RDW 20.2 % (11.6-15.6); WHITE BLOOD COUNT 5.2 K/mm3 (4.0-10.0)
[2021-01-04] MEDS ORDERED: FERROUS SO4 325 MG TABLET (FP) PO SCH (10:00)
[2021-01-04] MEDS ORDERED: ENOXAPARIN NA (PORCINE) 30 MG/0.3 ML DISP.SYRIN SQ SCH (10:00)
[2021-01-04] MEDS ORDERED: PANTOPRAZOLE 40 MG TABLET PO SCH (10:00)
[2021-01-04 10:28] LABS: ALBUMIN 2.4 g/dl (3.4-5.0); BLOOD UREA NITROGEN 69.2 mg/dL (7-18); CALCIUM 8.5 mg/dL (8.5-10.1)
[2021-01-04 10:33] LABS: BILIRUBIN,TOTAL 0.9 mg/dL (0.2-1); TOT PROT 5.8 g/dl (6.4-8.2)
[2021-01-04 12:18] LABS: ANISOCYTOSIS 1+; MACROCYTOSIS 1+; PLATELET ESTIMATE DECREASED
[2021-01-04 21:41] VITALS: BP 139/95; PULSE 105; TEMP 98.5
== END 2021-01-04 22:00 | DRG 291 ==
LOC: JER 17:31 → JERBED 12-28 → J6WEST-2 12-28 15:17 → JICU 12-28 21:32 → J6S 01-03 13:44
PROVIDERS: ADMIT Hospitalist; ATTEND Family Medicine
PROC: 05HM33Z Insertion of Infusion Device into Right Internal Jugular Vein, Percutaneous Approach (ICD-10-PCS; principal; 2020-12-29)
PROC: B543ZZA Ultrasonography of Right Jugular Veins, Guidance (ICD-10-PCS; 2020-12-29)
DX: I13.2 Hypertensive heart and chronic kidney disease with heart failure and with stage 5 chronic kidney disease, or end stage renal disease (principal); I50.23 Acute on chronic systolic (congestive) heart failure; N18.6 End stage renal disease; G93.41 Metabolic encephalopathy; A41.9 Sepsis, unspecified organism; R65.21 Severe sepsis with septic shock; I42.9 Cardiomyopathy, unspecified; W19.XXXA Unspecified fall, initial encounter; E87.5 Hyperkalemia; S00.03XA Contusion of scalp, initial encounter; I95.9 Hypotension, unspecified; T68.XXXA Hypothermia, initial encounter; M25.552 Pain in left hip; E78.5 Hyperlipidemia, unspecified; E03.9 Hypothyroidism, unspecified; R41.82 Altered mental status, unspecified; M35.3 Polymyalgia rheumatica; D69.6 Thrombocytopenia, unspecified
CPT/HCPCS: 36415; 36600; 70450-TC; 71045-TC-FY; 71250-TC; 72125-TC; 72170-TC-FY; 73552-TC-LT-FY; 74176-TC; 80048; 80053; 81003; 82550; 82553; 82607; 82803; 82962; 83540; 83550; 83605; 83735; 83880; 84100; 84132; 84439; 84443; 84481; 84484; 85025; 85027; 85610; 85730; 86593; 86780; 86850; 86900; 86901; 87040; 87086; 87804; 93005; 93010; 93306-TC; 93880-TC; 93970-TC; 94660; 99285-25; C9803; J0131; Q5106; U0003

== ENCOUNTER 2021-02-28 09:52 | Inpatient (IN) | payer OTHER ==
[2021-02-28 13:30] LABS: BASO % 0.5 % (0-2.0); EOS % 3.5 % (0-4.5); HEMATOCRIT 27.2 % (32.4-45.2); HEMOGLOBIN 8.1 GM/dL (10.7-15.3); LYMPH % 26.8 % (8-40); MCH 32.8 pg (25.7-33.7); MCHC 29.6 g/dl (32.0-36.0); MEAN CELL VOLUME 110.9 fl (80-96); MEAN PLT VOLUME 12.3 fl (7.5-11.1); MONO % 10.3 % (3.8-10.2); NEUT % 58.9 % (42.8-82.8); PLATELET COUNT 125 K/MM3 (134-434); RBC 2.46 M/mm3 (3.60-5.2); RDW 19.5 % (11.6-15.6); WHITE BLOOD COUNT 4.1 K/mm3 (4.0-10.0)
[2021-02-28 13:46] LABS: INR 1.04 (0.83-1.09); PROTHROMBIN TIME (PATIENT) 12.6 SEC (9.7-13.0)
[2021-02-28 14:01] LABS: ALBUMIN 2.6 g/dl (3.4-5.0); BLOOD UREA NITROGEN 55.6 mg/dL (7-18); CALCIUM 7.4 mg/dL (8.5-10.1)
[2021-02-28 14:05] LABS: CREATININE 4.2 mg/dL (0.55-1.3)
[2021-02-28 14:06] LABS: BILIRUBIN,TOTAL 0.3 mg/dL (0.2-1); TOT PROT 6.3 g/dl (6.4-8.2)
[2021-02-28 14:10] LABS: N-TERMINAL BNP 32864.4 pg/ml (5-125)
[2021-02-28 14:53] LABS: ANISOCYTOSIS 1+; MACROCYTOSIS 1+; PLATELET ESTIMATE DECREASED
[2021-02-28 15:06] LABS: TARGET CELLS 1+
[2021-02-28] MEDS ORDERED: ACETAMINOPHEN 325 MG TABLET (FP) PO PRN (15:06)
[2021-02-28] MEDS: FUROSEMIDE 40 MG/4 ML INJECTABLE VIAL IVPUSH SCH (15:42)
[2021-02-28] MEDS ORDERED: ATORVASTATIN CA 40 MG TABLET (FP) PO SCH (22:00)
[2021-02-28] MEDS ORDERED: MIRTAZAPINE 15 MG TABLET (FP) PO SCH (22:00)
[2021-02-28] MEDS ORDERED: ATORVASTATIN CA 40 MG TABLET (FP) ONE (22:03)
[2021-02-28] MEDS ORDERED: METOPROLOL TARTRATE 25 MG TABLET (FP) ONE (22:03)
[2021-02-28] MEDS ORDERED: HEPARIN NA (PORCINE) 5,000 UNITS/ML 1ML VIAL ONE (22:04)
[2021-02-28] MEDS ORDERED: MIRTAZAPINE 15 MG TABLET (FP) ONE (22:04)
[2021-02-28] MEDS: HEPARIN NA (PORCINE) 5,000 UNITS/ML 1ML VIAL SQ SCH (22:05)
[2021-02-28] MEDS: METOPROLOL TARTRATE 25 MG TABLET (FP) PO SCH (22:06)
[2021-03-01] MEDS ORDERED: LEVOTHYROXINE NA 25 MCG TABLET (FP) ONE (06:17)
[2021-03-01] MEDS ORDERED: FUROSEMIDE 40 MG/4 ML INJECTABLE VIAL ONE ×2 (06:17→14:38)
[2021-03-01] MEDS: FUROSEMIDE 40 MG/4 ML INJECTABLE VIAL IVPUSH SCH (06:19)
[2021-03-01] MEDS ORDERED: LEVOTHYROXINE NA 50 MCG TABLET (FP) PO SCH (07:00)
[2021-03-01 07:08] LABS: CALCIUM 7.6 mg/dL (8.5-10.1)
[2021-03-01 07:09] LABS: BLOOD UREA NITROGEN 54.4 mg/dL (7-18)
[2021-03-01 07:12] LABS: CREATININE 4.5 mg/dL (0.55-1.3)
[2021-03-01 07:27] LABS: HEMATOCRIT 27.9 % (32.4-45.2); HEMOGLOBIN 8.6 GM/dL (10.7-15.3); MCHC 30.8 g/dl (32.0-36.0); MEAN CELL VOLUME 110.5 fl (80-96); MEAN PLT VOLUME 10.7 fl (7.5-11.1); PLATELET COUNT 51 K/MM3 (134-434); RBC 2.53 M/mm3 (3.60-5.2); RDW 18.9 % (11.6-15.6); WHITE BLOOD COUNT 3.4 K/mm3 (4.0-10.0)
[2021-03-01] MEDS ORDERED: SODIUM ZIRCONIUM CYCLOSILICATE (LOKELMA) 5 GM PACKET PO SCH (08:00)
[2021-03-01] MEDS ORDERED: PT OWN MED DRAWER 7, Y5N ONE (09:19)
[2021-03-01] MEDS ORDERED: METOPROLOL TARTRATE 25 MG TABLET (FP) ONE (09:20)
[2021-03-01] MEDS ORDERED: CLOPIDOGREL BISULFATE 75 MG TABLET (FP) ONE (09:20)
[2021-03-01] MEDS ORDERED: HEPARIN NA (PORCINE) 5,000 UNITS/ML 1ML VIAL ONE (09:20)
[2021-03-01] MEDS: HEPARIN NA (PORCINE) 5,000 UNITS/ML 1ML VIAL SQ SCH ×2 (09:27→21:30)
[2021-03-01] MEDS: METOPROLOL TARTRATE 25 MG TABLET (FP) PO SCH ×2 (09:27→21:30)
[2021-03-01] MEDS ORDERED: ISOSORBIDE MONONITRATE 30 MG TAB.SR.24H (FP) PO SCH (10:00)
[2021-03-01] MEDS ORDERED: ALLOPURINOL 300 MG TABLET (FP) PO SCH (10:00)
[2021-03-01] MEDS ORDERED: CLOPIDOGREL BISULFATE 75 MG TABLET (FP) PO SCH (10:00)
[2021-03-01] MEDS ORDERED: FUROSEMIDE 40 MG/4 ML INJECTABLE VIAL IVPUSH SCH (13:07)
[2021-03-01] MEDS: ATORVASTATIN CA 40 MG TABLET (FP) PO SCH (21:30)
[2021-03-01] MEDS: MIRTAZAPINE 15 MG TABLET (FP) PO SCH (21:30)
[2021-03-01] MEDS ORDERED: LATANOPROST 0.005% OPHTH SOLN 2.5ML BOTTLE OD SCH (22:00)
[2021-03-01] MEDS: LATANOPROST 0.005% OPHTH SOLN 2.5ML BOTTLE OD SCH (22:16)
[2021-03-02] MEDS: FUROSEMIDE 40 MG/4 ML INJECTABLE VIAL IVPUSH SCH ×2 (06:31→17:34)
[2021-03-02] MEDS: LEVOTHYROXINE NA 50 MCG TABLET (FP) PO SCH (06:31)
[2021-03-02 09:28] LABS: HEMATOCRIT 30.4 % (32.4-45.2); HEMOGLOBIN 9.2 GM/dL (10.7-15.3); MCH 33.5 pg (25.7-33.7); MCHC 30.3 g/dl (32.0-36.0); MEAN CELL VOLUME 110.7 fl (80-96); MEAN PLT VOLUME 11.6 fl (7.5-11.1); PLATELET COUNT 51 K/MM3 (134-434); RBC 2.74 M/mm3 (3.60-5.2); RDW 19.4 % (11.6-15.6); WHITE BLOOD COUNT 2.8 K/mm3 (4.0-10.0)
[2021-03-02] MEDS ORDERED: CEFAZOLIN 1 GM/D5W 1 GM/50 ML BAG IVPB SCH (10:00)
[2021-03-02 10:03] LABS: ALBUMIN 2.8 g/dl (3.4-5.0); CALCIUM 8.2 mg/dL (8.5-10.1)
[2021-03-02 10:04] LABS: BLOOD UREA NITROGEN 59.2 mg/dL (7-18)
[2021-03-02 10:07] LABS: CREATININE 4.9 mg/dL (0.55-1.3)
[2021-03-02 10:09] LABS: BILIRUBIN,TOTAL 0.5 mg/dL (0.2-1); TOT PROT 6.8 g/dl (6.4-8.2)
[2021-03-02] MEDS: ISOSORBIDE MONONITRATE 30 MG TAB.SR.24H (FP) PO SCH (11:07)
[2021-03-02] MEDS: CLOPIDOGREL BISULFATE 75 MG TABLET (FP) PO SCH (11:08)
[2021-03-02] MEDS: METOPROLOL TARTRATE 25 MG TABLET (FP) PO SCH ×2 (11:10→23:38)
[2021-03-02] MEDS: ALLOPURINOL 300 MG TABLET (FP) PO SCH (11:11)
[2021-03-02] MEDS: SODIUM ZIRCONIUM CYCLOSILICATE (LOKELMA) 10 GM PACKET PO SCH (11:11)
[2021-03-02] MEDS: HEPARIN NA (PORCINE) 5,000 UNITS/ML 1ML VIAL SQ SCH ×2 (11:11→23:18)
[2021-03-02] MEDS ORDERED: VANCOMYCIN 1 GRAM (PRE-DOCKED) 1,000 MG/250 ML BAG IVPB ONE ×2 (14:30→23:15)
[2021-03-02] MEDS ORDERED: SODIUM CHLORIDE 250 ML IV PRN (15:45)
[2021-03-02] MEDS: CEFTRIAXONE 2 GM in DEXTROSE 5%-WATER 2 GM/100 ML BAG IVPB SCH (17:00)
[2021-03-02] MEDS: MIRTAZAPINE 15 MG TABLET (FP) PO SCH (23:09)
[2021-03-02] MEDS: ATORVASTATIN CA 40 MG TABLET (FP) PO SCH (23:17)
[2021-03-02] MEDS: LATANOPROST 0.005% OPHTH SOLN 2.5ML BOTTLE OD SCH (23:18)
[2021-03-02] MEDS: ACETAMINOPHEN 325 MG TABLET (FP) PO PRN (23:21)
[2021-03-03] MEDS: LEVOTHYROXINE NA 50 MCG TABLET (FP) PO SCH (06:44)
[2021-03-03] MEDS: ACETAMINOPHEN 325 MG TABLET (FP) PO PRN ×2 (06:44→12:09)
[2021-03-03] MEDS: FUROSEMIDE 40 MG/4 ML INJECTABLE VIAL IVPUSH SCH ×3 (06:44→14:41)
[2021-03-03 09:16] LABS: BASO % 0.8 % (0-2.0); EOS % 1.6 % (0-4.5); HEMATOCRIT 25.9 % (32.4-45.2); HEMOGLOBIN 7.9 GM/dL (10.7-15.3); LYMPH % 22.6 % (8-40); MCH 33.3 pg (25.7-33.7); MCHC 30.4 g/dl (32.0-36.0); MEAN CELL VOLUME 109.6 fl (80-96); MONO % 11.9 % (3.8-10.2); NEUT % 63.1 % (42.8-82.8); PLATELET COUNT 52 K/MM3 (134-434); RBC 2.36 M/mm3 (3.60-5.2); WHITE BLOOD COUNT 3.5 K/mm3 (4.0-10.0)
[2021-03-03 09:27] LABS: ALBUMIN 2.6 g/dl (3.4-5.0); BLOOD UREA NITROGEN 47.4 mg/dL (7-18); CALCIUM 7.9 mg/dL (8.5-10.1)
[2021-03-03 09:31] LABS: BILIRUBIN,TOTAL 0.7 mg/dL (0.2-1); CREATININE 4.2 mg/dL (0.55-1.3)
[2021-03-03 09:32] LABS: TOT PROT 6.2 g/dl (6.4-8.2)
[2021-03-03] MEDS ORDERED: PT OWN MED DRAWER 7, Y5N ONE (10:41)
[2021-03-03] MEDS ORDERED: DEXTROSE 5%-WATER 100 ML IVPB ONE (10:42)
[2021-03-03] MEDS: HEPARIN NA (PORCINE) 5,000 UNITS/ML 1ML VIAL SQ SCH ×2 (10:53→21:35)
[2021-03-03] MEDS: METOPROLOL TARTRATE 25 MG TABLET (FP) PO SCH ×2 (10:53→21:36)
[2021-03-03] MEDS: ISOSORBIDE MONONITRATE 30 MG TAB.SR.24H (FP) PO SCH (10:53)
[2021-03-03] MEDS: SODIUM ZIRCONIUM CYCLOSILICATE (LOKELMA) 10 GM PACKET PO SCH ×2 (10:53→11:07)
[2021-03-03] MEDS: ALLOPURINOL 300 MG TABLET (FP) PO SCH (10:53)
[2021-03-03] MEDS: CEFTRIAXONE 2 GM in DEXTROSE 5%-WATER 2 GM/100 ML BAG IVPB SCH (10:54)
[2021-03-03] MEDS ORDERED: VANCOMYCIN 1 GRAM (PRE-DOCKED) 1,000 MG/250 ML BAG IVPB ONE (12:45)
[2021-03-03] MEDS: CLOPIDOGREL BISULFATE 75 MG TABLET (FP) PO SCH (16:31)
[2021-03-03] MEDS ORDERED: traMADol HCL 50 MG TABLET PO ONE (17:52)
[2021-03-03] MEDS: ATORVASTATIN CA 40 MG TABLET (FP) PO SCH (21:36)
[2021-03-03] MEDS: MIRTAZAPINE 15 MG TABLET (FP) PO SCH (21:36)
[2021-03-03] MEDS: LATANOPROST 0.005% OPHTH SOLN 2.5ML BOTTLE OD SCH (21:44)
[2021-03-04] MEDS: FUROSEMIDE 40 MG/4 ML INJECTABLE VIAL IVPUSH SCH ×2 (06:23→14:29)
[2021-03-04] MEDS: LEVOTHYROXINE NA 50 MCG TABLET (FP) PO SCH (06:24)
[2021-03-04] MEDS ORDERED: PT OWN MED DRAWER 7, Y5N ONE (09:59)
[2021-03-04] MEDS: ALLOPURINOL 300 MG TABLET (FP) PO SCH (10:08)
[2021-03-04] MEDS: HEPARIN NA (PORCINE) 5,000 UNITS/ML 1ML VIAL SQ SCH ×2 (10:08→21:33)
[2021-03-04] MEDS: METOPROLOL TARTRATE 25 MG TABLET (FP) PO SCH ×2 (10:08→21:34)
[2021-03-04] MEDS: SODIUM ZIRCONIUM CYCLOSILICATE (LOKELMA) 10 GM PACKET PO SCH ×2 (10:08→10:14)
[2021-03-04] MEDS: ISOSORBIDE MONONITRATE 30 MG TAB.SR.24H (FP) PO SCH (10:08)
[2021-03-04 11:51] LABS: ARTERIAL BLD GAS O2 SATURATION 96.5 mmHg (95-98); ARTERIAL BLOOD GAS BASE EXCESS -1.2 mmol/L (-2-2); ARTERIAL BLOOD GAS PO2 107.1 mmHg (80-100)
[2021-03-04 11:52] LABS: ALLENS TEST POSITIVE
[2021-03-04 11:56] LABS: ARTERIAL BLOOD GAS pH 7.198 (7.350-7.450)
[2021-03-04 13:43] LABS: BASO % 1.1 % (0-2.0); EOS % 3.1 % (0-4.5); HEMATOCRIT 27.3 % (32.4-45.2); HEMOGLOBIN 8.2 GM/dL (10.7-15.3); LYMPH % 24.3 % (8-40); MCH 33.2 pg (25.7-33.7); MCHC 29.9 g/dl (32.0-36.0); MEAN PLT VOLUME 11.5 fl (7.5-11.1); MONO % 11.5 % (3.8-10.2); PLATELET COUNT 56 K/MM3 (134-434); RBC 2.46 M/mm3 (3.60-5.2); RDW 18.9 % (11.6-15.6); WHITE BLOOD COUNT 3.7 K/mm3 (4.0-10.0)
[2021-03-04 14:06] LABS: CALCIUM 7.9 mg/dL (8.5-10.1)
[2021-03-04 14:07] LABS: ALBUMIN 2.6 g/dl (3.4-5.0); BLOOD UREA NITROGEN 50.1 mg/dL (7-18)
[2021-03-04 14:07] LABS: HEP B CORE AB, TOT Positive (Negative)
[2021-03-04 14:10] LABS: CREATININE 4.6 mg/dL (0.55-1.3)
[2021-03-04 14:11] LABS: BILIRUBIN,TOTAL 0.4 mg/dL (0.2-1); TOT PROT 6.4 g/dl (6.4-8.2)
[2021-03-04 18:06] LABS: ALLENS TEST POSITIVE; ARTERIAL BLOOD GAS BASE EXCESS 1.6 mmol/L (-2-2); ARTERIAL BLOOD GAS PO2 70.1 mmHg (80-100)
[2021-03-04 18:07] LABS: VENT MODE PSV; VENT RATE 18
[2021-03-04] MEDS: MIRTAZAPINE 15 MG TABLET (FP) PO SCH (21:34)
[2021-03-04] MEDS: ATORVASTATIN CA 40 MG TABLET (FP) PO SCH (21:34)
[2021-03-04] MEDS: LATANOPROST 0.005% OPHTH SOLN 2.5ML BOTTLE OD SCH (21:35)
[2021-03-05] MEDS: LEVOTHYROXINE NA 50 MCG TABLET (FP) PO SCH (06:12)
[2021-03-05] MEDS: FUROSEMIDE 40 MG/4 ML INJECTABLE VIAL IVPUSH SCH ×2 (06:12→12:59)
[2021-03-05 07:32] LABS: ALLENS TEST POSITIVE; ARTERIAL BLD GAS O2 SATURATION 44.1 mmHg (95-98); ARTERIAL BLOOD GAS BASE EXCESS -0.5 mmol/L (-2-2); ARTERIAL BLOOD GAS pH 7.289 (7.350-7.450)
[2021-03-05 07:33] LABS: VENT RATE 20
[2021-03-05 07:34] LABS: ARTERIAL BLOOD GAS PO2 27.7 mmHg (80-100)
[2021-03-05] MEDS: ALLOPURINOL 300 MG TABLET (FP) PO SCH ×2 (09:46→12:39)
[2021-03-05] MEDS: SODIUM ZIRCONIUM CYCLOSILICATE (LOKELMA) 10 GM PACKET PO SCH ×2 (09:46→12:59)
[2021-03-05] MEDS: ISOSORBIDE MONONITRATE 30 MG TAB.SR.24H (FP) PO SCH ×2 (09:46→12:39)
[2021-03-05] MEDS: METOPROLOL TARTRATE 25 MG TABLET (FP) PO SCH ×3 (09:46→22:18)
[2021-03-05] MEDS ORDERED: METOLAZONE 5 MG TABLET PO ONE (09:52)
[2021-03-05] MEDS ORDERED: PT OWN MED DRAWER 7, Y5N ONE (12:29)
[2021-03-05] MEDS: HEPARIN NA (PORCINE) 5,000 UNITS/ML 1ML VIAL SQ SCH ×2 (12:37→22:26)
[2021-03-05] MEDS: ACETAMINOPHEN 325 MG TABLET (FP) PO PRN (12:57)
[2021-03-05] MEDS: SENNOSIDES 8.6MG TABLET (FP) PO PRN (22:26)
[2021-03-05] MEDS: ATORVASTATIN CA 40 MG TABLET (FP) PO SCH (22:26)
[2021-03-05] MEDS: MIRTAZAPINE 15 MG TABLET (FP) PO SCH (22:26)
[2021-03-05] MEDS: LATANOPROST 0.005% OPHTH SOLN 2.5ML BOTTLE OD SCH (22:37)
[2021-03-06] MEDS: LEVOTHYROXINE NA 50 MCG TABLET (FP) PO SCH (07:19)
[2021-03-06] MEDS: FUROSEMIDE 40 MG/4 ML INJECTABLE VIAL IVPUSH SCH ×3 (07:19→14:14)
[2021-03-06] MEDS ORDERED: FUROSEMIDE 40 MG TABLET (FP) PO ONE (08:47)
[2021-03-06 09:53] LABS: CALCIUM 7.5 mg/dL (8.5-10.1)
[2021-03-06 09:54] LABS: ALBUMIN 2.5 g/dl (3.4-5.0)
[2021-03-06 09:57] LABS: CREATININE 5.2 mg/dL (0.55-1.3)
[2021-03-06 09:58] LABS: TOT PROT 5.8 g/dl (6.4-8.2)
[2021-03-06] MEDS ORDERED: PT OWN MED DRAWER 7, Y5N ONE (10:11)
[2021-03-06] MEDS: ISOSORBIDE MONONITRATE 30 MG TAB.SR.24H (FP) PO SCH (10:28)
[2021-03-06] MEDS: ALLOPURINOL 300 MG TABLET (FP) PO SCH (10:28)
[2021-03-06] MEDS: HEPARIN NA (PORCINE) 5,000 UNITS/ML 1ML VIAL SQ SCH ×2 (10:28→22:45)
[2021-03-06] MEDS: SODIUM ZIRCONIUM CYCLOSILICATE (LOKELMA) 10 GM PACKET PO SCH (10:28)
[2021-03-06] MEDS: METOPROLOL TARTRATE 25 MG TABLET (FP) PO SCH ×2 (10:28→22:43)
[2021-03-06 10:44] LABS: HEMOGLOBIN 7.5 GM/dL (10.7-15.3); MCH 33.4 pg (25.7-33.7); MCHC 31.2 g/dl (32.0-36.0); MEAN CELL VOLUME 107.3 fl (80-96); MEAN PLT VOLUME 11.1 fl (7.5-11.1); PLATELET COUNT 56 K/MM3 (134-434); RBC 2.23 M/mm3 (3.60-5.2); WHITE BLOOD COUNT 4.5 K/mm3 (4.0-10.0)
[2021-03-06] MEDS ORDERED: SODIUM CHLORIDE 250 ML IV PRN (15:04)
[2021-03-06] MEDS: MIRTAZAPINE 15 MG TABLET (FP) PO SCH (22:43)
[2021-03-06] MEDS: ATORVASTATIN CA 40 MG TABLET (FP) PO SCH (22:43)
[2021-03-06] MEDS: SENNOSIDES 8.6MG TABLET (FP) PO PRN (22:45)
[2021-03-06] MEDS: LATANOPROST 0.005% OPHTH SOLN 2.5ML BOTTLE OD SCH (22:46)
[2021-03-07 05:40] LABS: ARTERIAL BLD GAS O2 SATURATION 96.8 mmHg (95-98); ARTERIAL BLOOD GAS BASE EXCESS 1.5 mmol/L (-2-2); ARTERIAL BLOOD GAS PO2 99.5 mmHg (80-100); ARTERIAL BLOOD GAS pH 7.309 (7.350-7.450)
[2021-03-07] MEDS: FUROSEMIDE 40 MG/4 ML INJECTABLE VIAL IVPUSH SCH ×2 (05:40→14:00)
[2021-03-07 05:50] LABS: ALLENS TEST POSITIVE
[2021-03-07 05:51] LABS: VENT MODE S/T; VENT RATE 20
[2021-03-07] MEDS: LEVOTHYROXINE NA 50 MCG TABLET (FP) PO SCH (06:44)
[2021-03-07] MEDS ORDERED: PT OWN MED DRAWER 7, Y5N ONE (10:14)
[2021-03-07] MEDS: HEPARIN NA (PORCINE) 5,000 UNITS/ML 1ML VIAL SQ SCH ×2 (10:23→21:55)
[2021-03-07] MEDS: ISOSORBIDE MONONITRATE 30 MG TAB.SR.24H (FP) PO SCH (10:23)
[2021-03-07] MEDS: METOPROLOL TARTRATE 25 MG TABLET (FP) PO SCH ×2 (10:23→21:55)
[2021-03-07] MEDS: ALLOPURINOL 300 MG TABLET (FP) PO SCH (10:23)
[2021-03-07] MEDS: SODIUM ZIRCONIUM CYCLOSILICATE (LOKELMA) 10 GM PACKET PO SCH (10:24)
[2021-03-07] MEDS: ATORVASTATIN CA 40 MG TABLET (FP) PO SCH (21:55)
[2021-03-07] MEDS: RIFAXIMIN 550 MG TABLET (UD) PO SCH (21:55)
[2021-03-07] MEDS: MIRTAZAPINE 15 MG TABLET (FP) PO SCH (21:55)
[2021-03-07] MEDS: LATANOPROST 0.005% OPHTH SOLN 2.5ML BOTTLE OD SCH (21:55)
[2021-03-08] MEDS: FUROSEMIDE 40 MG/4 ML INJECTABLE VIAL IVPUSH SCH ×2 (06:19→14:55)
[2021-03-08] MEDS: LEVOTHYROXINE NA 50 MCG TABLET (FP) PO SCH (06:20)
[2021-03-08] MEDS: HEPARIN NA (PORCINE) 5,000 UNITS/ML 1ML VIAL SQ SCH ×2 (09:40→22:17)
[2021-03-08] MEDS: ALLOPURINOL 300 MG TABLET (FP) PO SCH (09:40)
[2021-03-08] MEDS: RIFAXIMIN 550 MG TABLET (UD) PO SCH ×2 (09:40→22:17)
[2021-03-08] MEDS: METOPROLOL TARTRATE 25 MG TABLET (FP) PO SCH ×2 (09:41→22:17)
[2021-03-08] MEDS: ISOSORBIDE MONONITRATE 30 MG TAB.SR.24H (FP) PO SCH (09:42)
[2021-03-08 10:11] LABS: ALBUMIN 2.5 g/dl (3.4-5.0); CALCIUM 7.8 mg/dL (8.5-10.1)
[2021-03-08 10:12] LABS: BLOOD UREA NITROGEN 60.7 mg/dL (7-18)
[2021-03-08 10:14] LABS: CREATININE 5.9 mg/dL (0.55-1.3)
[2021-03-08 10:15] LABS: BILIRUBIN,TOTAL 0.4 mg/dL (0.2-1)
[2021-03-08 11:12] LABS: HEMATOCRIT 27.1 % (32.4-45.2); HEMOGLOBIN 8.2 GM/dL (10.7-15.3); MCH 32.9 pg (25.7-33.7); MCHC 30.2 g/dl (32.0-36.0); MEAN CELL VOLUME 108.9 fl (80-96); MEAN PLT VOLUME 11.2 fl (7.5-11.1); PLATELET COUNT 51 K/MM3 (134-434); RBC 2.49 M/mm3 (3.60-5.2); RDW 19.1 % (11.6-15.6); WHITE BLOOD COUNT 4.5 K/mm3 (4.0-10.0)
[2021-03-08] MEDS ORDERED: BENZOIN/ALOE VERA/STORAX/TOLU 58 ML BOTTLE ONE (11:17)
[2021-03-08 13:31] LABS: ARTERIAL BLD GAS O2 SATURATION 98.7 mmHg (95-98); ARTERIAL BLOOD GAS BASE EXCESS -1.4 mmol/L (-2-2); ARTERIAL BLOOD GAS PO2 151.3 mmHg (80-100); ARTERIAL BLOOD GAS pH 7.308 (7.350-7.450)
[2021-03-08 13:32] LABS: ALLENS TEST POSITIVE
[2021-03-08] MEDS ORDERED: LIDOCAINE HCL 1%, 10 MG/ML (20ML VIAL) ONE (14:20)
[2021-03-08] MEDS ORDERED: HEPARIN NA (PORCINE) 5,000 UNITS/ML 1ML VIAL ONE (14:20)
[2021-03-08] MEDS ORDERED: MIDAZOLAM HCL 2 MG/2 ML SINGLE DOSE VIAL ONE (14:40)
[2021-03-08] MEDS ORDERED: LIDOCAINE HCL 1%, 10 MG/ML (20ML VIAL) INF ONE (15:26)
[2021-03-08] MEDS ORDERED: ONDANSETRON 4 MG/2 ML VIAL IVPUSH PRN (16:06)
[2021-03-08] MEDS ORDERED: oxyCODONE HCL 5 MG TABLET PO PRN (16:06)
[2021-03-08] MEDS ORDERED: PROMETHAZINE HCL 25 MG/1 ML VIAL IVPUSH PRN (16:06)
[2021-03-08] MEDS ORDERED: ACETAMINOPHEN 325 MG TABLET (FP) PO PRN (16:17)
[2021-03-08] MEDS ORDERED: SODIUM CHLORIDE 250 ML IV PRN (16:17)
[2021-03-08] MEDS ORDERED: SENNOSIDES 8.6MG TABLET (FP) PO PRN (16:17)
[2021-03-08] MEDS: ATORVASTATIN CA 40 MG TABLET (FP) PO SCH (22:17)
[2021-03-08] MEDS: MIRTAZAPINE 15 MG TABLET (FP) PO SCH (22:17)
[2021-03-08] MEDS: LATANOPROST 0.005% OPHTH SOLN 2.5ML BOTTLE OD SCH (22:18)
[2021-03-09] MEDS: FUROSEMIDE 40 MG/4 ML INJECTABLE VIAL IVPUSH SCH ×2 (06:16→13:26)
[2021-03-09] MEDS: LEVOTHYROXINE NA 50 MCG TABLET (FP) PO SCH (06:16)
[2021-03-09] MEDS: HEPARIN NA (PORCINE) 5,000 UNITS/ML 1ML VIAL SQ SCH ×2 (09:09→21:14)
[2021-03-09] MEDS: ISOSORBIDE MONONITRATE 30 MG TAB.SR.24H (FP) PO SCH (09:09)
[2021-03-09] MEDS: METOPROLOL TARTRATE 25 MG TABLET (FP) PO SCH ×2 (09:09→21:14)
[2021-03-09] MEDS: RIFAXIMIN 550 MG TABLET (UD) PO SCH ×2 (09:09→21:14)
[2021-03-09] MEDS ORDERED: PT OWN MED DRAWER 7, Y5N ONE (09:10)
[2021-03-09] MEDS: ALLOPURINOL 300 MG TABLET (FP) PO SCH (09:10)
[2021-03-09] MEDS: ACETAMINOPHEN 325 MG TABLET (FP) PO PRN (18:14)
[2021-03-09] MEDS: ATORVASTATIN CA 40 MG TABLET (FP) PO SCH (21:14)
[2021-03-09] MEDS: MIRTAZAPINE 15 MG TABLET (FP) PO SCH (21:15)
[2021-03-09] MEDS: LATANOPROST 0.005% OPHTH SOLN 2.5ML BOTTLE OD SCH (21:20)
[2021-03-10] MEDS: ACETAMINOPHEN 325 MG TABLET (FP) PO PRN (02:32)
[2021-03-10] MEDS: LEVOTHYROXINE NA 50 MCG TABLET (FP) PO SCH (06:22)
[2021-03-10] MEDS: FUROSEMIDE 40 MG/4 ML INJECTABLE VIAL IVPUSH SCH ×2 (06:22→14:16)
[2021-03-10] MEDS: METOPROLOL TARTRATE 25 MG TABLET (FP) PO SCH ×2 (10:20→23:13)
[2021-03-10] MEDS: ISOSORBIDE MONONITRATE 30 MG TAB.SR.24H (FP) PO SCH (10:20)
[2021-03-10] MEDS: RIFAXIMIN 550 MG TABLET (UD) PO SCH ×2 (10:20→23:13)
[2021-03-10] MEDS: HEPARIN NA (PORCINE) 5,000 UNITS/ML 1ML VIAL SQ SCH ×2 (10:20→23:12)
[2021-03-10] MEDS: ALLOPURINOL 300 MG TABLET (FP) PO SCH (10:22)
[2021-03-10] MEDS ORDERED: SODIUM CHLORIDE 250 ML IV PRN (11:12)
[2021-03-10] MEDS ORDERED: EPOETIN ALFA-EPBX 3,000 UNIT/ML VIAL SQ ONE (12:30)
[2021-03-10 13:05] LABS: HEMATOCRIT 23.4 % (32.4-45.2); HEMOGLOBIN 7.2 GM/dL (10.7-15.3); MCH 33.2 pg (25.7-33.7); MCHC 30.6 g/dl (32.0-36.0); MEAN CELL VOLUME 108.5 fl (80-96); MEAN PLT VOLUME 11.6 fl (7.5-11.1); PLATELET COUNT 53 K/MM3 (134-434); RBC 2.16 M/mm3 (3.60-5.2)
[2021-03-10 13:26] LABS: CALCIUM 7.7 mg/dL (8.5-10.1)
[2021-03-10 13:27] LABS: ALBUMIN 2.5 g/dl (3.4-5.0); BLOOD UREA NITROGEN 51.2 mg/dL (7-18)
[2021-03-10 13:30] LABS: CREATININE 5.4 mg/dL (0.55-1.3); PHOSPHOROUS 5.6 mg/dL (2.5-4.9)
[2021-03-10 13:31] LABS: BILIRUBIN,TOTAL 0.4 mg/dL (0.2-1); TOT PROT 5.9 g/dl (6.4-8.2)
[2021-03-10] MEDS: ALBUMIN HUMAN 25% 12.5 GM/50 ML VIAL IVPB SCH ×2 (13:35→14:35)
[2021-03-10] MEDS: DOXYCYCLINE HYCLATE 100 MG CAPSULE PO SCH (18:34)
[2021-03-10] MEDS: MIRTAZAPINE 15 MG TABLET (FP) PO SCH (23:13)
[2021-03-10] MEDS: ATORVASTATIN CA 40 MG TABLET (FP) PO SCH (23:13)
[2021-03-11] MEDS: LATANOPROST 0.005% OPHTH SOLN 2.5ML BOTTLE OD SCH ×2 (00:17→22:01)
[2021-03-11] MEDS: FUROSEMIDE 40 MG/4 ML INJECTABLE VIAL IVPUSH SCH ×2 (06:16→15:10)
[2021-03-11] MEDS: LEVOTHYROXINE NA 50 MCG TABLET (FP) PO SCH (06:16)
[2021-03-11 09:54] LABS: HEMATOCRIT 23.4 % (32.4-45.2); HEMOGLOBIN 7.2 GM/dL (10.7-15.3); MCH 33.4 pg (25.7-33.7); MCHC 30.9 g/dl (32.0-36.0); MEAN CELL VOLUME 108.1 fl (80-96); MEAN PLT VOLUME 11.1 fl (7.5-11.1); PLATELET COUNT 51 K/MM3 (134-434); RBC 2.16 M/mm3 (3.60-5.2); RDW 19.6 % (11.6-15.6); WHITE BLOOD COUNT 4.7 K/mm3 (4.0-10.0)
[2021-03-11] MEDS: RIFAXIMIN 550 MG TABLET (UD) PO SCH ×2 (11:14→22:00)
[2021-03-11] MEDS: ALLOPURINOL 300 MG TABLET (FP) PO SCH (11:14)
[2021-03-11] MEDS: METOPROLOL TARTRATE 25 MG TABLET (FP) PO SCH ×2 (11:14→22:00)
[2021-03-11] MEDS: HEPARIN NA (PORCINE) 5,000 UNITS/ML 1ML VIAL SQ SCH ×2 (11:14→22:00)
[2021-03-11] MEDS: DOXYCYCLINE HYCLATE 100 MG CAPSULE PO SCH ×2 (11:14→18:10)
[2021-03-11] MEDS: ISOSORBIDE MONONITRATE 30 MG TAB.SR.24H (FP) PO SCH (11:14)
[2021-03-11] MEDS: MIRTAZAPINE 15 MG TABLET (FP) PO SCH (22:00)
[2021-03-11] MEDS: ATORVASTATIN CA 40 MG TABLET (FP) PO SCH (22:01)
[2021-03-12] MEDS: LEVOTHYROXINE NA 50 MCG TABLET (FP) PO SCH (06:48)
[2021-03-12] MEDS: FUROSEMIDE 40 MG/4 ML INJECTABLE VIAL IVPUSH SCH ×2 (06:48→13:37)
[2021-03-12] MEDS: ISOSORBIDE MONONITRATE 30 MG TAB.SR.24H (FP) PO SCH (10:06)
[2021-03-12] MEDS: DOXYCYCLINE HYCLATE 100 MG CAPSULE PO SCH ×2 (10:06→17:46)
[2021-03-12] MEDS: ALLOPURINOL 300 MG TABLET (FP) PO SCH (10:06)
[2021-03-12] MEDS: RIFAXIMIN 550 MG TABLET (UD) PO SCH ×2 (10:06→21:59)
[2021-03-12] MEDS: HEPARIN NA (PORCINE) 5,000 UNITS/ML 1ML VIAL SQ SCH ×2 (10:06→22:01)
[2021-03-12] MEDS: METOPROLOL TARTRATE 25 MG TABLET (FP) PO SCH ×2 (10:06→22:00)
[2021-03-12 12:05] LABS: HEMATOCRIT 23.6 % (32.4-45.2); HEMOGLOBIN 7.2 GM/dL (10.7-15.3); MCH 33.6 pg (25.7-33.7); MCHC 30.7 g/dl (32.0-36.0); MEAN CELL VOLUME 109.2 fl (80-96); MEAN PLT VOLUME 11.3 fl (7.5-11.1); PLATELET COUNT 63 K/MM3 (134-434); RBC 2.16 M/mm3 (3.60-5.2); RDW 19.4 % (11.6-15.6); WHITE BLOOD COUNT 3.9 K/mm3 (4.0-10.0)
[2021-03-12 12:19] LABS: ALBUMIN 2.4 g/dl (3.4-5.0)
[2021-03-12 12:22] LABS: CREATININE 4.9 mg/dL (0.55-1.3)
[2021-03-12 12:23] LABS: BILIRUBIN,TOTAL 0.6 mg/dL (0.2-1); TOT PROT 6.1 g/dl (6.4-8.2)
[2021-03-12] MEDS: ATORVASTATIN CA 40 MG TABLET (FP) PO SCH (21:59)
[2021-03-12] MEDS: MIRTAZAPINE 15 MG TABLET (FP) PO SCH (21:59)
[2021-03-12] MEDS: LATANOPROST 0.005% OPHTH SOLN 2.5ML BOTTLE OD SCH (22:00)
[2021-03-13] MEDS ORDERED: EPOETIN ALFA-EPBX 4,000 UNIT/ML VIAL IVPUSH ONE ×2 (06:00→19:19)
[2021-03-13] MEDS: LEVOTHYROXINE NA 50 MCG TABLET (FP) PO SCH (06:13)
[2021-03-13] MEDS: FUROSEMIDE 40 MG/4 ML INJECTABLE VIAL IVPUSH SCH ×2 (06:13→13:46)
[2021-03-13] MEDS ORDERED: PT OWN MED DRAWER 7, Y5N ONE (09:17)
[2021-03-13] MEDS: ISOSORBIDE MONONITRATE 30 MG TAB.SR.24H (FP) PO SCH (09:19)
[2021-03-13] MEDS: METOPROLOL TARTRATE 25 MG TABLET (FP) PO SCH ×2 (09:19→21:29)
[2021-03-13] MEDS: RIFAXIMIN 550 MG TABLET (UD) PO SCH ×2 (09:19→21:29)
[2021-03-13] MEDS: HEPARIN NA (PORCINE) 5,000 UNITS/ML 1ML VIAL SQ SCH ×2 (09:19→21:28)
[2021-03-13] MEDS: DOXYCYCLINE HYCLATE 100 MG CAPSULE PO SCH ×2 (09:19→17:09)
[2021-03-13] MEDS: ALLOPURINOL 300 MG TABLET (FP) PO SCH (09:19)
[2021-03-13 09:31] LABS: HEMATOCRIT 22.7 % (32.4-45.2); MCH 33.3 pg (25.7-33.7); MCHC 30.6 g/dl (32.0-36.0); MEAN PLT VOLUME 11.3 fl (7.5-11.1); PLATELET COUNT 65 K/MM3 (134-434); RBC 2.09 M/mm3 (3.60-5.2); RDW 19.3 % (11.6-15.6); WHITE BLOOD COUNT 4.8 K/mm3 (4.0-10.0)
[2021-03-13 10:07] LABS: ALBUMIN 2.6 g/dl (3.4-5.0); BLOOD UREA NITROGEN 43.1 mg/dL (7-18)
[2021-03-13 10:09] LABS: CALCIUM 8.3 mg/dL (8.5-10.1)
[2021-03-13 10:10] LABS: CREATININE 5.4 mg/dL (0.55-1.3)
[2021-03-13 10:12] LABS: BILIRUBIN,TOTAL 1.1 mg/dL (0.2-1); TOT PROT 6.2 g/dl (6.4-8.2)
[2021-03-13] MEDS: ALBUTEROL SO4 2.5/IPRATROPIUM 0.5 INH SOL 3 ML VIAL.NEB. NEB SCH ×3 (11:00→20:37)
[2021-03-13] MEDS: methylPREDNISolone NA SUCC 40 MG/1 ML VIAL IVPUSH SCH ×2 (11:08→17:10)
[2021-03-13] MEDS ORDERED: LIDOCAINE HCL 1%, 10 MG/ML (20ML VIAL) ONE (15:50)
[2021-03-13] MEDS ORDERED: HEPARIN NA (PORCINE) 5,000 UNITS/ML 1ML VIAL ONE (15:50)
[2021-03-13] MEDS ORDERED: MIDAZOLAM HCL 2 MG/2 ML SINGLE DOSE VIAL ONE (17:19)
[2021-03-13] MEDS ORDERED: HEPARIN NA (PORCINE) 5,000 UNITS/ML 1ML VIAL SQ ONE (17:40)
[2021-03-13] MEDS ORDERED: ONDANSETRON 4 MG/2 ML VIAL IVPUSH PRN ×3 (17:49→19:19)
[2021-03-13] MEDS ORDERED: LIDOCAINE HCL 1% PRESERVATIVE FREE - 30ML VIAL IJ ONE (17:50)
[2021-03-13] MEDS ORDERED: PROMETHAZINE HCL 25 MG/1 ML VIAL IVPUSH PRN (19:19)
[2021-03-13] MEDS ORDERED: SENNOSIDES 8.6MG TABLET (FP) PO PRN (19:19)
[2021-03-13 20:23] VITALS: BMI 36.7
[2021-03-13] MEDS: ATORVASTATIN CA 40 MG TABLET (FP) PO SCH (21:29)
[2021-03-13] MEDS: MIRTAZAPINE 15 MG TABLET (FP) PO SCH (21:29)
[2021-03-13] MEDS: LATANOPROST 0.005% OPHTH SOLN 2.5ML BOTTLE OD SCH (21:29)
[2021-03-14] MEDS: methylPREDNISolone NA SUCC 40 MG/1 ML VIAL IVPUSH SCH ×2 (01:00→17:56)
[2021-03-14] MEDS: ACETAMINOPHEN 325 MG TABLET (FP) PO PRN (05:58)
[2021-03-14] MEDS: LEVOTHYROXINE NA 50 MCG TABLET (FP) PO SCH (05:59)
[2021-03-14] MEDS: FUROSEMIDE 40 MG/4 ML INJECTABLE VIAL IVPUSH SCH ×2 (05:59→17:55)
[2021-03-14] MEDS: ALBUTEROL SO4 2.5/IPRATROPIUM 0.5 INH SOL 3 ML VIAL.NEB. NEB SCH ×4 (07:25→19:45)
[2021-03-14] MEDS: HEPARIN NA (PORCINE) 5,000 UNITS/ML 1ML VIAL SQ SCH ×2 (11:57→21:41)
[2021-03-14] MEDS: METOPROLOL TARTRATE 25 MG TABLET (FP) PO SCH ×2 (11:58→21:40)
[2021-03-14] MEDS: ISOSORBIDE MONONITRATE 30 MG TAB.SR.24H (FP) PO SCH (11:58)
[2021-03-14] MEDS: RIFAXIMIN 550 MG TABLET (UD) PO SCH ×2 (11:59→21:40)
[2021-03-14] MEDS: ALLOPURINOL 300 MG TABLET (FP) PO SCH (11:59)
[2021-03-14] MEDS: DOXYCYCLINE HYCLATE 100 MG CAPSULE PO SCH ×2 (11:59→17:56)
[2021-03-14] MEDS ORDERED: EPOETIN ALFA 10,000 UNIT/1 ML VIAL SQ ONE (15:04)
[2021-03-14] MEDS ORDERED: PT OWN MED DRAWER 7, Y5N ONE (21:33)
[2021-03-14] MEDS: MIRTAZAPINE 15 MG TABLET (FP) PO SCH (21:36)
[2021-03-14] MEDS: LATANOPROST 0.005% OPHTH SOLN 2.5ML BOTTLE OD SCH (21:41)
[2021-03-14] MEDS: ATORVASTATIN CA 40 MG TABLET (FP) PO SCH (21:51)
[2021-03-15] MEDS: methylPREDNISolone NA SUCC 40 MG/1 ML VIAL IVPUSH SCH ×3 (02:00→18:11)
[2021-03-15] MEDS: FUROSEMIDE 40 MG/4 ML INJECTABLE VIAL IVPUSH SCH ×2 (06:29→15:41)
[2021-03-15] MEDS: LEVOTHYROXINE NA 50 MCG TABLET (FP) PO SCH (06:31)
[2021-03-15] MEDS: RIFAXIMIN 550 MG TABLET (UD) PO SCH (11:27)
[2021-03-15] MEDS: METOPROLOL TARTRATE 25 MG TABLET (FP) PO SCH (11:27)
[2021-03-15] MEDS: HEPARIN NA (PORCINE) 5,000 UNITS/ML 1ML VIAL SQ SCH (11:28)
[2021-03-15] MEDS: DOXYCYCLINE HYCLATE 100 MG CAPSULE PO SCH ×2 (11:28→18:10)
[2021-03-15] MEDS: ALLOPURINOL 300 MG TABLET (FP) PO SCH (11:28)
[2021-03-15] MEDS: ISOSORBIDE MONONITRATE 30 MG TAB.SR.24H (FP) PO SCH (11:28)
[2021-03-15] MEDS: ALBUTEROL SO4 2.5/IPRATROPIUM 0.5 INH SOL 3 ML VIAL.NEB. NEB SCH ×4 (12:15→20:36)
[2021-03-15] MEDS ORDERED: EPOETIN ALFA-EPBX 10,000 UNIT/ML VIAL SQ ONE (13:15)
[2021-03-15] MEDS ORDERED: PT OWN MED DRAWER 7, Y5N ONE (13:34)
[2021-03-15 14:35] VITALS: BP 121/61; PULSE 72; TEMP 98.1
[2021-03-15] MEDS: ACETAMINOPHEN 325 MG TABLET (FP) PO PRN (16:52)
== END 2021-03-15 21:50 | DRG 291 ==
LOC: JER 09:52 → JERBED 14:11 → J6S 03-01 17:26
PROVIDERS: ADMIT Family Medicine; ATTEND Family Medicine
PROC: 5A1D70Z Performance of Urinary Filtration, Intermittent, Less than 6 Hours Per Day (ICD-10-PCS; 2021-03-02)
PROC: 5A1D70Z Performance of Urinary Filtration, Intermittent, Less than 6 Hours Per Day (ICD-10-PCS; 2021-03-08)
PROC: 5A1D70Z Performance of Urinary Filtration, Intermittent, Less than 6 Hours Per Day (ICD-10-PCS; 2021-03-10)
PROC: 05HY33Z Insertion of Infusion Device into Upper Vein, Percutaneous Approach (ICD-10-PCS; 2021-03-13)
PROC: 0JH63XZ Insertion of Tunneled Vascular Access Device into Chest Subcutaneous Tissue and Fascia, Percutaneous Approach (ICD-10-PCS; principal; 2021-03-13 17:00)
PROC: 5A1D70Z Performance of Urinary Filtration, Intermittent, Less than 6 Hours Per Day (ICD-10-PCS; 2021-03-14)
DX: I13.2 Hypertensive heart and chronic kidney disease with heart failure and with stage 5 chronic kidney disease, or end stage renal disease (principal); N18.6 End stage renal disease; I50.33 Acute on chronic diastolic (congestive) heart failure; J96.01 Acute respiratory failure with hypoxia; J96.02 Acute respiratory failure with hypercapnia; G93.41 Metabolic encephalopathy; I31.3 Pericardial effusion (noninflammatory); N39.0 Urinary tract infection, site not specified; L03.114 Cellulitis of left upper limb; D61.818 Other pancytopenia; E03.9 Hypothyroidism, unspecified; E78.5 Hyperlipidemia, unspecified; I25.10 Atherosclerotic heart disease of native coronary artery without angina pectoris; K21.9 Gastro-esophageal reflux disease without esophagitis; B96.1 Klebsiella pneumoniae [K. pneumoniae] as the cause of diseases classified elsewhere; E66.9 Obesity, unspecified; D64.9 Anemia, unspecified; Z68.37 Body mass index [BMI] 37.0-37.9, adult; M10.9 Gout, unspecified; M79.7 Fibromyalgia; M35.3 Polymyalgia rheumatica; J44.9 Chronic obstructive pulmonary disease, unspecified; R31.0 Gross hematuria; R29.6 Repeated falls; D69.6 Thrombocytopenia, unspecified; I34.0 Nonrheumatic mitral (valve) insufficiency; A53.0 Latent syphilis, unspecified as early or late; R26.89 Other abnormalities of gait and mobility; E11.22 Type 2 diabetes mellitus with diabetic chronic kidney disease; I50.84 End stage heart failure; R60.1 Generalized edema; R41.82 Altered mental status, unspecified; Z99.2 Dependence on renal dialysis
CPT/HCPCS: 36415; 36430; 36600; 70450-TC; 71045-TC-FY; 71250-TC; 76000-TC-FY; 76775-TC; 76856-TC; 76937; 80048; 80053; 80162; 82140; 82550; 82607; 82803; 82962; 83735; 83880; 84100; 84436; 84443; 84484; 85025; 85027; 85610; 85730; 86593; 86704; 86706; 86707; 86708; 86709; 86780; 86803; 86850; 86900; 86901; 86922; 87040; 87086; 87186; 87340; 93005; 93010; 93970-TC; 93971; 94640; 94660; 94760; 97116-GP; 97162-GP; 99285-25; C9803; G0480; J1644; P9058; Q5106; U0003; U0005